=== PATIENT | female | born 1960 | race African-American/Black ===

== ENCOUNTER 2017-07-19 13:10 | Emergency (ER) | payer MEDICARE, OTHER ==
[2017-07-19] MEDS: ONDANSETRON 4 MG INJ IV (17:51)
[2017-07-19] MEDS: HYDROmorphONE 0.5 MG/0.5 ML SYG IV (17:51)
[2017-07-19 18:27] LABS: ADD MAN DIFF? NO
[2017-07-19] MEDS: ALBUTEROL 0.5% (NEB) 2.5 MG/0.5 ML AMP INH (18:27)
[2017-07-19] MEDS: IPRATROPIUM (NEB) 0.5 MG/2.5 ML AMP INH (18:28)
[2017-07-19 18:30] LABS: BASOPHILS % 0.3 % (0.0-2.0); HEMATOCRIT 33.4 % (37.0-47.0); HEMOGLOBIN 10.7 g/dl (12.0-16.0); LYMPHOCYTES # 1.4 10^3/ul (0.8-2.9); LYMPHOCYTES % 20.1 % (15.0-51.0); MEAN CORPUSCULAR HEMOGLOBIN 28.3 pg (29.0-33.0); MEAN CORPUSCULAR VOLUME 88.4 fl (82.0-101.0); MONOCYTE # 0.5 10^3/ul (0.3-0.9); MONOCYTES % 6.8 % (0.0-11.0); NEUTROPHIL # 5.1 10^3/ul (1.6-7.5); NEUTROPHILS % 72.5 % (39.0-77.0); PLATELET COUNT 386 10^3/UL (140-415); RED BLOOD COUNT 3.78 10^6/ul (4.20-5.40); RED CELL DISTRIBUTION WIDTH 15.3 % (11.5-14.5)
[2017-07-19 18:30] LABS: WHITE BLOOD COUNT 7.1 10^3/ul (4.8-10.8)
[2017-07-19 18:55] LABS: ALANINE AMINOTRANSFERASE 43 IU/L (13-69); ALBUMIN/GLOBULIN RATIO 1.42; ALKALINE PHOSPHATASE 107 IU/L (42-121); ANION GAP 18 (8-16); ASPARTATE AMINO TRANSFERASE 31 IU/L (15-46); BLOOD UREA NITROGEN 10 mg/dl (7-20); CALCIUM 9.7 mg/dl (8.4-10.2); CARBON DIOXIDE 27 mmol/L (21-31); CHLORIDE 102 mmol/L (97-110); CREATININE 0.79 mg/dl (0.44-1.00); GLUCOSE 109 mg/dl (70-220); POTASSIUM 3.9 mmol/L (3.5-5.1); SODIUM 143 mmol/L (135-144); TOTAL PROTEIN 8.5 g/dl (6.1-8.1)
[2017-07-19 19:15] LABS: TROPONIN-I < 0.012 ng/ml (0.00-0.12)
== END 2017-07-19 21:08 | disposition home or self-care (01) ==
LOC: E/R 13:10
DX: J20.9 Acute bronchitis, unspecified (principal); R05 Cough; Z85.3 Personal history of malignant neoplasm of breast; Z85.43 Personal history of malignant neoplasm of ovary; Z87.891 Personal history of nicotine dependence
CPT/HCPCS: 36415; 71045; 80053; 84484; 85025; 93005; 94644; 96374; 96375; 99285-25